=== PATIENT | male | born 1960 | race Caucasian/White ===

== ENCOUNTER 2017-01-17 20:19 | Emergency (ER) | payer OTHER ==
[~2017-01-17 20:19] MED LIST: ASPIR 8181 MG; FISH OIL1 CAP; MULTIVITAMIN1 TAB
[2017-01-17] MEDS ORDERED: OMEGA 3-6-9 CO400 MG PO (20:27)
[2017-01-17] MEDS ORDERED: NORCO 5-325 TA1 EACH PO (22:14)
[2017-01-17] MEDS ORDERED: MIRALAX17 G2 PO (22:14)
== END 2017-01-17 22:51 ==
LOC: EDMED 20:19
PROC: 0SSGXZZ Reposition Left Ankle Joint, External Approach (ICD-10-PCS; principal; 2017-01-17)
DX: S82.892A Other fracture of left lower leg, initial encounter for closed fracture (principal); W01.0XXA Fall on same level from slipping, tripping and stumbling without subsequent striking against object, initial encounter; Y93.64 Activity, baseball; Y92.830 Public park as the place of occurrence of the external cause; Y99.8 Other external cause status
CPT/HCPCS: J2060; J2405; J3010; J7030